=== PATIENT | male | born 1965 | race Caucasian/White ===

== ENCOUNTER 2018-03-06 12:38 | Emergency (ER) | payer OTHER ==
--- NOTE | 2018-03-06 12:56 | PHYS DOC ---
Adult General Chief Complaint Chief Complaint: ANIMAL BITE HPI HPI 52-year-old male presents with dog bite. The patient was out for run when he passed another daughter who was running with his dog. The dog lunged at him without warning and bit him a single time underneath his left arm just distal to the axilla. The patient noticed a 3 cm long laceration and skin with a couple of surrounding puncture wounds. Patient denies any other bites or trauma from the attack. The patient has been feeling normal up until this point. He denies fever or chills. Review of Systems Review of Systems Constitutional: Denies fever or chills [] Eyes: Denies change in visual acuity, redness, or eye pain [] HENT: Denies nasal congestion or sore throat [] Respiratory: Denies cough or shortness of breath [] Cardiovascular: No additional information not addressed in HPI [] GI: Denies abdominal pain, nausea, vomiting, bloody stools or diarrhea [] : Denies dysuria or hematuria [] Musculoskeletal: Denies back pain or joint pain [] Integument: Dog bite[] Neurologic: Denies headache, focal weakness or sensory changes [] Endocrine: Denies polyuria or polydipsia [] All other systems were reviewed and found to be within normal limits, except as documented in this note. Physical Exam Physical Exam Constitutional: Well developed, well nourished, no acute distress, non-toxic appearance. [] HENT: Normocephalic, atraumatic, bilateral external ears normal, oropharynx moist, no oral exudates, nose normal. [] Eyes: PERRLA, EOMI, conjunctiva normal, no discharge. [] Neck: Normal range of motion, no tenderness, supple, no stridor. [] Cardiovascular:Heart rate regular rhythm, no murmur [] Lungs & Thorax: Bilateral breath sounds clear to auscultation [] Abdomen: Bowel sounds normal, soft, no tenderness, no masses, no pulsatile masses. [] Skin: 3 cm laceration of the proximal left upper arm with 3 surrounding puncture ko. Bleeding controlled[] Back: No tenderness, no CVA tenderness. [] Extremities: No tenderness, no cyanosis, no clubbing, ROM intact, no edema. [] Neurologic: Alert and oriented X 3, normal motor function, normal sensory function, no focal deficits noted. [] Psychologic: Affect normal, judgement normal, mood normal. [] EKG EKG [] Radiology/Procedures Radiology/Procedures [] Course & Med Decision Making Course & Med Decision Making Pertinent Labs and Imaging studies reviewed. (See chart for details) Given that this is a penetrating wound, I will not close the patient's laceration. We have cleaned it with normal saline as well as Hibiclens. A nonadherent dressing was placed over the wound. It will heal with secondary intention. I will place the patient on Augmentin for 7 days. We will give him his first dose in the ED. The patient's wound is cleaned and dressed. He is stable for discharge at this time. [] Dragon Disclaimer Dragon Disclaimer This electronic medical record was generated, in whole or in part, using a voice recognition dictation system. Departure Departure: Referrals: PCP,NO (PCP) Scripts Amoxicillin/Potassium Clav (AUGMENTIN [id number] TABLET) 1 Each Tablet 1 TAB PO BID, #14 TAB Prov: GAY LEÓN DO 03/06/18 GAY LEÓN DO Mar 06, 2018 12:56
[2018-03-06] MEDS ORDERED: AMOX1TAB61 PO (13:15)
[2018-03-06] MEDS ORDERED: AMOXICILLIN/K CLAV 875/125MG TABLET. ONE (13:15)
[2018-03-06] MEDS: AMOXICILLIN/K CLAV 875/125MG TABLET. PO ONE (13:18)
[2018-03-06 13:20] VITALS: BP 126/88
== END 2018-03-06 13:22 | disposition home or self-care (01) ==
LOC: ER 12:38
DX: S41.112A Laceration without foreign body of left upper arm, initial encounter (principal); W54.0XXA Bitten by dog, initial encounter; Y93.02 Activity, running; Y92.89 Other specified places as the place of occurrence of the external cause; Y99.8 Other external cause status
CPT/HCPCS: 99283